=== PATIENT | male | born 1995 | race Caucasian/White ===

== ENCOUNTER 2016-06-05 06:23 | Outpatient (CLI) | payer MEDICAID, OTHER | END 2016-06-05 06:24 | disposition critical access hospital (66) | DX: R42 Dizziness and giddiness (principal); R05 Cough | CPT/HCPCS: A0425; A0429 ==

== ENCOUNTER 2016-06-05 06:51 | Emergency (ER) | payer OTHER ==
[2016-06-05] MEDS ORDERED: DEXAMETHASONE 10 MG/ML VIAL ONE (07:34)
[2016-06-05] MEDS ORDERED: DOXYCYCLINE 100 MG TABLET PO ONE (07:34)
[2016-06-05] MEDS ORDERED: CHERRY SYRUP 10 ML UDC PO ONE (07:34)
[2016-06-05] MEDS: DEXAMETHASONE 10 MG/ML VIAL PO STA (07:44)
[2016-06-05] MEDS: DOXYCYCLINE 100 MG TABLET PO STA (07:44)
[2016-06-05] MEDS: ALBUTEROL NEB 2.5 MG/3 ML INH STA (07:45)
[2016-06-05] MEDS ORDERED: ALBUTEROL NEB 2.5 MG/3 ML INH ONE (07:49)
== END 2016-06-05 08:24 | disposition home or self-care (01) ==
DX: J40 Bronchitis, not specified as acute or chronic (principal); J06.9 Acute upper respiratory infection, unspecified; R55 Syncope and collapse; R00.0 Tachycardia, unspecified; L02.91 Cutaneous abscess, unspecified
CPT/HCPCS: 93005; 93010; 94640; 99284; A9270; J7613

== ENCOUNTER 2018-11-06 03:08 | Emergency (ER) | payer BC, MEDICAID ==
[2018-11-06] MEDS ORDERED: BUFFERED LIDOCAINE 10 ML SYRINGE SUBQ STA (03:31)
[2018-11-06] MEDS ORDERED: CLINDAMYCIN 150 MG CAPSULE PO STA (04:09)
--- NOTE | 2018-11-06 04:09 | ED Physician Documentation ---
History of Present Illness - Stated complaint Stated Complaint: SWOLLEN SKIN - Chief complaint Chief Complaint: Wound - Additonal information Additional information: This is a 22-year-old male who presents with redness and pain of his left f orearm. For the last year patient has had a rash over his forearms, parts of his face, as well as his upper chest. He states that he will get scattered pustules and red papules that appear to be like acne, these will sometimes open, or sometimes fade away. These occur over the dorsal surface of his arms as well as the upper chest. The palms, legs, abdomen, back, and upper face are spared. He will scratch at them occasionally and they will scab, and subsequently scar. He has tried doing chlorhexidine washes, this has not improved the rash. Prior to a year ago he did not have any acne/rash. He did see a supervisor finish end who Thought this rash was acne, and prescribed him doxycycline, which he has been taking without significant improvement. He also was previously on Bactrim, however this gave him intense sinus headaches so he stopped this. He denies any other symptoms such as, chest pain, or other rash. He denies any blistering of the rash. No IVDU, no meth or other drug use. Over the past week he has had some redness and swelling of his left forearm which began as a typical lesion and then has continued to spread. He actually thinks this has improved over the past several days and the size of lesion has gone down somewhat, but he is having significant pain so he presented to the emergency department tonight Review of Systems Constitutional: denies: Fever Throat: denies: Oral lesions / sores Cardiac: denies: Chest pain / pressure Respiratory: denies: Dyspnea GI: denies: Abdominal Pain Skin: reports: Rash PD PAST MEDICAL HISTORY - Past Medical History Past Medical History: Yes Cardiovascular: None Respiratory: None Endocrine/Autoimmune: None Derm: Other Other Past Medical History: Acne - Past Surgical History Past Surgical History: No - Present Medications Home Medications: Ambulatory Orders Medication Instructions Recorded Confirmed RX: Albuterol Sulfate [Proair Hfa 2 puffs IH QID #1 hfa.aer.ad 06/05/16 11/06/18 Inhaler] RX: Doxycycline Hyclate 100 mg PO BID #14 tablet 06/05/16 11/06/18 Clindamycin HCl [Clindamycin 150MG 450 mg PO TID 10 Days #90 capsule 11/06/18 CAP] - Allergies Allergies/Adverse Reactions: Allergies Allergy/AdvReac Type Severity Reaction Status Date / Time Sulfa (Sulfonamide AdvReac Headache Verified 11/06/18 03:20 Antibiotics) - Social History Does the pt smoke?: No Smoking Status: Never smoker Does the pt drink ETOH?: Yes ETOH Use: Liquor Does the pt have substance abuse?: No - Immunizations Immunizations are current?: Yes - POLST Patient has POLST: No PD ED PE NORMAL - Vitals Vital signs reviewed: Yes - General General: Alert and oriented X 3, No acute distress - HEENT HEENT: Atraumatic - Cardiac Cardiac: RRR, No murmur - Respiratory Respiratory: No respiratory distress - Abdomen Abdomen: Non distended - Derm Derm: Other (There are scattered papules which are up to 1 cm in diameter over the dorsal forearms and extending up to the shoulders as well as across the chest and the lower face. Some of these lesions have Small central crusts and excoriations. On the left forearm on the volar surface in the mid forearm 4 cm x 2 cm erythema and induration with a small amount of central fluctuance. There is no active drainage from the lesion. There is no tenderness with palpation along the flexor tendons. Patient is able to flex and extend his fingers and wrist without issue. Radial and ulnar pulses are 2+, sensation over the left hand is normal) - Extremities Extremities: No deformity - Neuro Neuro: Alert and oriented X 3 - Psych Psych: Normal mood, Normal affect Results - Vitals Vitals: Vital Signs - 24 hr 11/06/18 11/06/18 03:10 04:24 Temperature 36.0 C L Heart Rate 109 H 84 Respiratory 16 16 Rate Blood Pressure 160/119 H 131/92 H O2 Saturation 100 99 Oxygen O2 Source Room air Procedures - Abscess I&D (location) Upper extremity Preparation: Lidocaine 1% Incision: Incised with scalpel, Irrigated, Other (2 cc of a mixed serosanguineous/purulent drainage was expressed, followed by sanguinous drainage. Great care was taken to only incise superficially within the top 0.75 cm of tissue and avoid any vessels, tendons, or other structures of the forearm. Ultrasound was used to confirm that the abscess cavity had been drained. There is another area More proximal in the arm with a small 0.5 cm x 0.5 cm fluid collection which appears to small to drain at this time.) Other: Pt tolerated well, Dressing applied, Antibiotic prescribed PD MEDICAL DECISION MAKING - ED course Complexity details: considered differential (Cellulitis, abscess, phlegmon, acne, porphyria, MRSA infection, Environmental exposure/allergy, NSTI, superficial thrombophlebitis) ED course: On initial examination patient is tachycardic in triage but this is resolved at the time of my physical exam. He is well-appearing and nontoxic, he has not had any fever. He has scattered lesions over his forearms chest and face, which he has appeared to pick at, and they are in various stages of healing. There are no blisters, no mucosal involvement. Given that these have been present for a year, I am not improved with antibiotics, I am concerned that there is another underlying medical problem that may be causing these lesions, though he does not have other obvious symptoms of porphyria or any systemic disease. 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 He denies drug use and specifically methamphetamine use. He has an area which appears to be indurated/cellulitic or possible abscess of the left forearm, with ultrasound there is a small 1 cm x 1 cm action in the volar surface of the forearm. This was drained as noted above, the incision made was small because the fluid collection on US was also small, and great care was taken to avoid any of the deeper structures of the arm. He does not have signs of flexor tenosynovitis or myositis or deeper infection at this time. There was minimal purulent drainage from the I&D, and he has several small subcentimeter fluid collections visible on ultrasound which I do not feel are amenable to drainage, and rate may represent early phlegmon/abscess. Given that he has had continued rash will be on doxycycline we will trial clindamycin since he does not tolerate Bactrim. I prescribed him a 10-day course of Bactrim with instructions to stop the doxycycline. I also feel that he should follow-up with a supervisor finish end for second opinion given that his rash began a year ago in the absence of any prior history of acne. The distribution and the onset is not classic for acne. After the incision and drainage site was dressed and hemostatic, I marked the edges of erythema of his forearm, and asked him to return to the emergency department if the redness progressed centimeter past these margins, or if he has any other concerning symptoms such as pain with flexion of his wrist or hands, fever, or any other concerning symptoms. His history and exam are not consistent with NSTI at this time. I did not see signs of superficial thrombophlebitis on US. He was given the first dose of clindamycin here in the ED. Vital signs are unremarkable, HR remains normal at the time of discharge. Return precautions were discussed and patient was discharged home. Departure - Departure Disposition: 01 Home, Self Care Clinical Impression: Abscess Condition: Stable Instructions: ED Abscess IandD Follow-Up: Your,PCP [Other] Prescriptions: Clindamycin HCl [Clindamycin 150MG CAP] 450 mg PO TID 10 Days #90 capsule Comments: You were seen today for a skin infection. You appeared to have a small abscess, as well as a cellulitis/infection of the surrounding skin. Please take the clindamycin as directed (you may stop the doxycycline while taking clindamycin), and return to the emergency department or see your primary care provider within the next 24 to 48 hours for a recheck. If you are having pain along the tendons of your arm, fever, or if the redness progresses past the marked area more than 1 cm, please return to the emergency department. Please also follow-up with a supervisor finish end for the chronic skin lesions/rash on your arms that you have had. Forms: Activity restrictions Discharge Date/Time: 11/06/18 04:29
[2018-11-06 04:29] VITALS: BP 131/92
== END 2018-11-06 04:29 | disposition home or self-care (01) ==
LOC: ED 03:08
DX: L02.414 Cutaneous abscess of left upper limb (principal); L08.9 Local infection of the skin and subcutaneous tissue, unspecified
CPT/HCPCS: 10060

== ENCOUNTER 2020-04-15 08:14 | Outpatient (CLI) | payer BC, OTHER ==
--- NOTE | 2020-04-15 17:48 | XRAY Report ---
PROCEDURE: Shoulder 3 View RT INDICATIONS: RT SHOULDER PAIN TECHNIQUE: 4 views of the shoulder were acquired. COMPARISON: None. FINDINGS: Bones: No fractures or dislocations. No suspicious bony lesions. Visualized ribs appear intact. Soft tissues: No suspicious soft tissue calcifications. IMPRESSION: No osseous lesion. If there are persistent symptoms or continued clinical concern for pathology, the n repeat plain film radiographs (7-10 days) or advanced imaging (CT, MR, bone scan) should be conside red for further evaluation. Reviewed by: Toshia Gong MD, PhD on 04/15/2020 4:47 PM [facility] Approved by: Toshia Gong MD, PhD on 04/15/2020 4:47 PM [facility] Station ID: [id number]
== END 2020-04-15 23:59 | disposition home or self-care (01) ==
LOC: DI.N 08:14
PROVIDERS: ATTEND Orthopaedic Surgery
DX: M25.511 Pain in right shoulder (principal)

== ENCOUNTER 2020-11-26 16:06 | Outpatient (CLI) | payer MEDICAID | END 2020-11-26 16:07 | disposition home or self-care (01) | LOC: COV 16:06 | PROVIDERS: ATTEND Family Medicine | DX: Z20.822 Contact with and (suspected) exposure to COVID-19 (principal) ==